=== PATIENT | male | born 1950 | race Caucasian/White ===

== ENCOUNTER 2016-09-16 07:14 | Day surgery (SDC) | payer MEDICARE, OTHER ==
[~2016-09-16] VITALS: Ht 182.9 cm; Wt 121.0 kg
[~2016-09-16 07:14] MED LIST: ALLO100T PO; LACTATED RINGERS 1,000 ML IV SCH; LOSA100T8 PO; METF500T4 PO; NAPR550T PO; PRAV40TA2 PO; SODIUM CHLORIDE FLUSH 3 ML SYR IV PRN; TAMS0.4C2 PO
[2016-09-16 07:41] VITALS: BP 156/88
[2016-09-16] MEDS ORDERED: PROPOFOL 20 ML IV ONE (08:12)
[2016-09-16] MEDS ORDERED: MIDAZOLAM 2 MG/2 ML (VERSED) VIAL ONE (08:12)
[2016-09-16] MEDS ORDERED: ALFENTANIL 500 MCG/ML (ALFENTA) 5 ML AMP IV ONE ×2 (08:13)
[2016-09-16 09:10] VITALS: BP 143/76
[2016-09-16 09:49] VITALS: BP 156/80
--- NOTE | 2016-09-16 13:38 | OPERATIVE REPORT ---
DATE OF OPERATION: 09/16/2016 PRE-OPERATIVE DIAGNOSIS: Colon screening POST-OPERATIVE DIAGNOSIS: Normal colon OPERATIVE PROCEDURE: Total colonoscopy SURGEON: Tyson Colindres MD ANESTHESIA: IV conscious sedation, Monitored Anesthesia Services POSITION: Left lateral decubitus FINDINGS: 1. Normal colon. 2. Good prep. OPERATIVE NOTE: Following satisfactory induction of analgesia a digital rectal exam was performed. This revealed smooth, slightly enlarged prostate with no rectal mass palpable. The sphincter tone was normal. The colonoscope was introduced per rectum and advanced under CO2 insufflation and direct vision to the cecum. The cecum was identified by convergence of the teniae, ileocecal valve, and palpation of the right lower quadrant. The above findings were noted. [employer] photographs were obtained. The colon was again carefully inspected as the scope was slowly withdrawn. Retroflexed view of the rectum was normal. Excess insufflated CO2 was evacuated and the scope removed. The patient tolerated the procedure well and transferred to recovery in stable condition. RECOMMENDATIONS: In the absence of symptoms, the patient should have repeat screening colonoscopy in 10 years.
== END 2016-09-16 10:02 | disposition home or self-care (01) ==
LOC: ASC 07:14
PROVIDERS: ATTEND Surgery
DX: Z12.11 Encounter for screening for malignant neoplasm of colon (principal); M19.90 Unspecified osteoarthritis, unspecified site; I10 Essential (primary) hypertension; K21.9 Gastro-esophageal reflux disease without esophagitis; M10.9 Gout, unspecified; E78.5 Hyperlipidemia, unspecified; N40.0 Benign prostatic hyperplasia without lower urinary tract symptoms; Z79.84 Long term (current) use of oral hypoglycemic drugs; Z79.899 Other long term (current) drug therapy
CPT/HCPCS: 45378; J2250; J7120